=== PATIENT | female | born 1960 | race Caucasian/White ===

== ENCOUNTER 2021-05-25 22:16 | Emergency (ER) | payer OTHER ==
[~2021-05-25] VITALS: Ht 162.6 cm; Wt 57.2 kg
[2021-05-25 23:35] VITALS: BP_SYST 122
--- NOTE | 2021-05-26 01:16 | NUR ---
Pt c/o abdominal pain and loose stools after taking Zithromax for laryngitis. Denies N/V.
--- NOTE | 2021-05-26 01:16 | NUR ---
Patient ambulatory to bed 7 for evaluation
[2021-05-26] MEDS ORDERED: MORPHINE 2 MG/ML INJ. SYRINGE IVP ONE (01:30)
[2021-05-26] MEDS ORDERED: NACL 0.9% 1,000 ML IV ONE ×2 (01:30→04:45)
[2021-05-26] MEDS ORDERED: ONDANSETRON HCL 4 MG/2 ML VIAL IVP ONE (01:30)
--- NOTE | 2021-05-26 01:30 | NUR ---
Dr. Guajardo at bedside to assess pt.
--- NOTE | 2021-05-26 02:10 | NUR ---
# 20 gauge angiocath placed to LAC. Use of asceptic technique. Opsite placed over site. Blood return noted. Blood for lab drawn from site. Flushed with 10 cc of normal saline. No evidence of infiltration noted. Patient tolerated well.
[2021-05-26 02:37] LABS: CALCIUM 8.6 mg/dL (8.4-11.0); CREATININE 0.8 mg/dL (0.55-1.30); POTASSIUM 3.9 mmol/L (3.5-5.1)
[2021-05-26 02:41] LABS: BASOPHILS # (AUTO) 0.1 K/uL (0.0-0.2); BASOPHILS % (AUTO) 0.3 % (0.0-2.0); HEMATOCRIT 39.8 % (36-48); HEMOGLOBIN 13.4 g/dL (12.0-16.0); LYMPHOCYTES # (AUTO) 0.8 K/uL (1.0-5.5); LYMPHOCYTES % (AUTO) 5.5 % (20.5-51.5); MEAN CORPUSCULAR HEMOGLOBIN 31 pg (27-31); MEAN CORPUSCULAR HGB CONC 34 % (32-36); MEAN CORPUSCULAR VOLUME 93 fL (79.0-98.0); MONOCYTES # (AUTO) 0.9 K/uL (0.0-1.0); MONOCYTES % (AUTO) 6.5 % (1.7-9.3); NEUTROPHILS # (AUTO) 12.7 K/uL (1.8-7.7); NEUTROPHILS % (AUTO) 87.7 % (40.0-70.0); PLATELET COUNT (AUTO) 343 K/uL (130-430); RED CELL DISTRIBUTION WIDTH 12.8 % (9.0-15.0); WHITE BLOOD COUNT (AUTO) 14.5 K/uL (4.8-10.8)
[2021-05-26 02:42] LABS: TOTAL BILIRUBIN 0.1 mg/dL (0.0-1.0)
[2021-05-26] MEDS ORDERED: HYOS0.1275 PO (03:02)
[2021-05-26] MEDS ORDERED: ACET1TAB23 PO (03:02)
[2021-05-26] MEDS ORDERED: PHE25 PO (03:02)
[2021-05-26] MEDS ORDERED: LORazepam 2 MG/ML VIAL IVP ONE (04:45)
[2021-05-26] MEDS ORDERED: MORPHINE 4 MG INJ. 4 MG/ML VIAL IVP ONE (04:45)
--- NOTE | 2021-05-26 05:15 | NUR ---
Pt to CT via W/C in stable condition.
[2021-05-26 05:25] LABS: BILIRUBIN,URINE NEGATIVE (NEGATIVE); BLOOD, URINE 2+ (NEGATIVE); CLARITY/URINE CLEAR (CLEAR); COLOR,URINE YELLOW (YELLOW); GLUCOSE,URINE NEGATIVE (NEGATIVE); KETONES,URINE NEGATIVE (NEGATIVE); LEUKOCYTE ESTERASE ,URINE NEGATIVE (NEGATIVE); NITRITE, URINE NEGATIVE (NEGATIVE); PROTEIN URINE TRACE (NEGATIVE); UROBILINOGEN,URINE 0.2 (0.2-1.0)
--- NOTE | 2021-05-26 05:25 | NUR ---
Pt returns from CT. Pt medicated with Ativan 0.5 mg and Morphine 4 mg IVP.
--- NOTE | 2021-05-26 06:00 | NUR ---
Pt resting quietly, NAD.
--- NOTE | 2021-05-26 07:00 | NUR ---
Pt instructed by Dr. Guajardo to return to [facility] r/t elevated WBC.
[2021-05-26 07:19] VITALS: BP_SYST 122
--- NOTE | 2021-05-26 07:19 | NUR ---
Patient given written and verbal discharge instructions and verbalizes understanding. ER MD discussed with patient the results and treatment provided. Patient in stable condition. ID arm band removed. IV catheter removed intact and dressing applied, no active bleeding. Rx of Tylenol/Codeine, Hyoscyamine, and Promethazine given. Patient educated on pain management and to follow up with PMD. Pain Scale 2/10. Opportunity for questions provided and answered. Medication side effect fact sheet provided.
[2021-05-26 07:37] LABS: BACTERIA,URINE FEW /HPF (None Seen); CALCIUM OXALATE CRYSTALS,UR 30-50 /HPF (None Seen)
[2021-05-26 07:38] LABS: MUCUS,URINE None Seen /LPF (None Seen); URIC ACID CRYSTALS,URINE 0-10 /HPF (None Seen)
[2021-05-29] MEDS ORDERED: METR-154 PO (15:25)
== END 2021-05-26 07:19 | disposition home or self-care (01) ==
LOC: SED 22:16
DX: R10.30 Lower abdominal pain, unspecified (principal); Z79.899 Other long term (current) drug therapy
CPT/HCPCS: 36415; 74021; 74176; 76376; 80053; 81000; 83690; 85025; 96361; 96374; 96375; 96376; 99285; J2060; J2270 ×2; J2405; J7030